=== PATIENT | female | born 1965 | race Caucasian/White ===

== ENCOUNTER 2018-02-25 17:01 | Emergency (ER) | payer OTHER, BC ==
[2018-02-25 17:16] VITALS: TEMP 98
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
[2018-02-25] MEDS ORDERED: CYCLOBENZAPRINE 10 MG TAB PO STA (19:04)
[2018-02-25] MEDS ORDERED: HYDROcodone/APAP 7.5-325MG 1 EACH TAB PO ONE (19:04)
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
[2018-02-25 20:00] VITALS: BP 183/86; PULSE 68; RESP 17
== END 2018-02-25 20:07 | disposition home or self-care (01) ==
LOC: EC 17:01
DX: S16.1XXA Strain of muscle, fascia and tendon at neck level, initial encounter (principal); I10 Essential (primary) hypertension; F17.200 Nicotine dependence, unspecified, uncomplicated; V43.52XA Car driver injured in collision with other type car in traffic accident, initial encounter; Y93.89 Activity, other specified; Y92.410 Unspecified street and highway as the place of occurrence of the external cause
CPT/HCPCS: 72125; 99284

== ENCOUNTER 2019-05-19 09:14 | Inpatient (IN) | payer BC, OTHER ==
--- NOTE | 2019-05-19 09:24 | ED ---
General Adult HPI - General Stated complaint: neuro symptoms Time Seen by Provider: 05/19/19 09:17 - History of Present Illness Initial comments: Dictation was produced using [employer] dictation software. please excuse any grammatical, word or spelling errors. Chief Complaint: 54-year-old female with past medical history of hypertension liver disease presents with right-sided weakness. History of Present Illness:-year-old female she presents today with right-sided weakness. She is brought in by EMS. Patient states she woke up at approximate 7:30 AM and felt significant motor weakness or right upper extremity or right lower extremity. Patient also complains of a strange sensation to her right side of her body. Denies any facial drooping or facial numbness. She was seen at [facility] where she was treated for hypertension. She was given lisinopril and another blood pressure medication. Total bili normal at approximately 10 PM. The ROS documented in this emergency department record has been reviewed and confirmed by me. Those systems with pertinent positive or negative responses have been documented in the HPI. All other systems are other negative and/or noncontributory. PHYSICAL EXAM: General Impression: Alert and oriented x3, not in acute distress HEENT: Normocephalic atraumatic, extra-ocular movements intact, pupils equal and reactive to light bilaterally, mucous membranes moist. Cardiovascular: Heart regular rate and rhythm, S1&S2 audible, no murmurs, rubs or gallops Chest: Lungs clear to auscultation bilaterally, no rhonchi, no wheeze, no rales Abdomen: Bowel sounds present, abdomen soft, non-tender, non-distended, no organomegaly Musculoskeletal: Pulses present and equal in all extremities, no peripheral edema Motor: no focal deficits noted Neurological: CN II-XII grossly intact, no focal motor or sensory deficits noted. Right upper extremity drift, right lower extremity weakness however there is definite to gravity. Non aphasic, follows commands. No dysarthria Skin: Intact with no visualized rashes Psych: Normal affect and mood ED course: Patient is a 54-year-old female presents with strokelike symptoms. She woke up with the symptoms. Last known normal was 10 PM last night. Culture was paged. Patient given an initial NIH of 2. Constructgiven that there was some concern for large vessel occlusion. Patient case was discussed with Dr. Grissom. CT and CT angiogram of the brain were found to be unremarkable. There is however some suspicious findings seen on the CT without contrast. Chest x-ray is unremarkable. Laboratory evaluation unremarka ble. Point of aspirin was administered. Patient be admitted for cerebrovascular accident. Discussed patient case with Dr. Pedraza who is willing to accept patient's care. Patient was not given TPA as per recommended by neuro endovascular stroke doctor. She was given aspirin. EKG interpretation: Ventricular rate 61, normal sinus rhythm, OH interval 154, care is 82, QTc 446. No OH prolongation, no QTC prolongation, no ST or T-wave changes noted. EKG compared to [default value] showing no changes. Overall, this EKG is unremarkable - Related Data Home Medications Medication Instructions Recorded Confirmed No Known Home Medications 02/25/18 05/19/19 Allergies Allergy/AdvReac Type Severity Reaction Status Date / Time No Known Allergies Allergy Verified 05/19/19 09:44 Review of Systems ROS Statement: Those systems with pertinent positive or pertinent negative responses have been documented in the HPI. ROS Other: All systems not noted in ROS Statement are negative. Past Medical History Past Medical History: GERD/Reflux, Hypertension, Liver Disease Additional Past Medical History / Comment(s): 06/07/15 Pt admitted to floor s/p lap mikey fundoplasty.OTHER hx: HX ELEVATED LIVER ENZYMES. NO CURRENT TX FOR GERD. small HIATAL HERNIA, Esophagitis. History of Any Multi-Drug Resistant Organisms: None Reported Past Surgical History: Section, Tubal Ligation Additional Past Surgical History / Comment(s): 06/07/15 Laparoscopic mikey fundoplasty. Other SX: D & C. EGD 03/16/15. Past Anesthesia/Blood Transfusion Reactions: No Reported Reaction Additional Past Anesthesia/Blood Transfusion Reaction / Comment(s): Pt has never recieved blood. Past Psychological History: No Psychological Hx Reported Smoking Status: Current every day smoker Past Alcohol Use History: Rare Past Drug Use History: None Reported - Past Family History Mother Family Medical History: No Reported History (Healthy except fracture of the left humerus) Additional Family Medical History / Comment(s): Mother is healthy and is 77 or 78yrs old. Father Family Medical History: No Reported History ( of pneumonia), Coronary Artery Disease (CAD) Additional Family Medical History / Comment(s): Father is . He had heart problems. Brother(s) Family Medical History: CVA/TIA, Neurologic Disorder (CVA at age 30) Sister(s) Family Medical History: No Reported History (3 sisters healthy) Son(s) Family Medical History: No Reported History (2 sons healthy) Course Vital Signs 05/19/19 05/19/19 09:19 09:32 Temperature 98.1 F Pulse Rate 62 Respiratory 18 Rate Blood Pressure 144/80 O2 Sat by Pulse 99 Oximetry Medical Decision Making - Lab Data Result diagrams: 05/19/19 09:22 05/19/19 09:22 Lab Results 05/19/19 05/19/19 05/19/19 Range/Units 09:22 09:22 09:22 WBC 10.2 (3.8-10.6) k/uL RBC 5.16 (3.80-5.40) m/uL Hgb 15.1 (11.4-16.0) gm/dL Hct 45.0 (34.0-46.0) % MCV 87.4 (80.0-100.0) fL MCH 29.3 (25.0-35.0) pg MCHC 33.5 (31.0-37.0) g/dL RDW 13.5 (11.5-15.5) % Plt Count 242 (150-450) k/uL Neutrophils % 70 % Lymphocytes % 22 % Monocytes % 3 % Eosinophils % 3 % Basophils % 1 % Neutrophils # 7.2 (1.3-7.7) k/uL Lymphocytes # 2.2 (1.0-4.8) k/uL Monocytes # 0.3 (0-1.0) k/uL Eosinophils # 0.3 (0-0.7) k/uL Basophils # 0.1 (0-0.2) k/uL PT 10.0 (9.0-12.0) sec INR 0.9 (<1.2) APTT 24.5 (22.0-30.0) sec Sodium 142 (137-145) mmol/L Potassium 3.9 (3.5-5.1) mmol/L Chloride 109 H (98-107) mmol/L Carbon Dioxide 26 (22-30) mmol/L Anion Gap 7 mmol/L BUN 10 (7-17) mg/dL Creatinine 0.58 (0.52-1.04) mg/dL Est GFR (CKD-EPI)AfAm >90 (>60 ml/min/1.73 sqM) Est GFR (CKD-EPI)NonAf >90 (>60 ml/min/1.73 sqM) Glucose 111 H (74-99) mg/dL Calcium 9.4 (8.4-10.2) mg/dL Total Bilirubin 0.6 (0.2-1.3) mg/dL AST 33 (14-36) U/L ALT 38 (9-52) U/L Alkaline Phosphatase 131 H (38-126) U/L Total Creatine Kinase (30-135) U/L CK-MB (CK-2) (0.0-2.4) ng/mL CK-MB (CK-2) Rel Index Troponin I (0.000-0.034) ng/mL Total Protein 7.6 (6.3-8.2) g/dL Albumin 4.5 (3.5-5.0) g/dL 05/19/19 Range/Units 09:22 WBC (3.8-10.6) k/uL RBC (3.80-5.40) m/uL Hgb (11.4-16.0) gm/dL Hct (34.0-46.0) % MCV (80.0-100.0) fL MCH (25.0-35.0) pg MCHC (31.0-37.0) g/dL RDW (11.5-15.5) % Plt Count (150-450) k/uL Neutrophils % % Lymphocytes % % Monocytes % % Eosinophils % % Basophils % % Neutrophils # (1.3-7.7) k/uL Lymphocytes # (1.0-4.8) k/uL Monocytes # (0-1.0) k/uL Eosinophils # (0-0.7) k/uL Basophils # (0-0.2) k/uL PT (9.0-12.0) sec INR (<1.2) APTT (22.0-30.0) sec Sodium (137-145) mmol/L Potassium (3.5-5.1) mmol/L Chloride (98-107) mmol/L Carbon Dioxide (22-30) mmol/L Anion Gap mmol/L BUN (7-17) mg/dL Creatinine (0.52-1.04) mg/dL Est GFR (CKD-EPI)AfAm (>60 ml/min/1.73 sqM) Est GFR (CKD-EPI)NonAf (>60 ml/min/1.73 sqM) Glucose (74-99) mg/dL Calcium (8.4-10.2) mg/dL Total Bilirubin (0.2-1.3) mg/dL AST (14-36) U/L ALT (9-52) U/L Alkaline Phosphatase (38-126) U/L Total Creatine Kinase 143 H (30-135) U/L CK-MB (CK-2) 1.0 (0.0-2.4) ng/mL CK-MB (CK-2) Rel Index 0.7 Troponin I <0.012 (0.000-0.034) ng/mL Total Protein (6.3-8.2) g/dL Albumin (3.5-5.0) g/dL Disposition Clinical Impression: Cerebrovascular accident Disposition: ADMITTED IP TO THIS HOSP Condition: Fair Referrals: Mynor Khanna MD [Primary Care Provider] - 1-2 days Decision Time: 11:10
--- NOTE | 2019-05-19 09:36 | CT ---
EXAMINATION TYPE: CT brain wo con for TPA DATE OF EXAM: 05/19/2019 HISTORY: Right side weakness and numbness CT DLP: unavailable mGycm. Automated Exposure Control for Dose Reduction was Utilized. TECHNIQUE: CT scan of the head is performed without contrast. COMPARISON: None. FINDINGS: There is no acute intracranial hemorrhage or midline shift identified. There is diffuse v entricular and sulcal prominence consistent with diffuse age-related cerebral atrophy. Costa-white mat ter differentiation is preserved. The globes are intact and the visualized sinuses are clear. IMPRESSION: No acute intracranial hemorrhage or midline shift. There is mild diffuse age-related ce rebral atrophy identified most prominent over the bilateral frontal lobes.
--- NOTE | 2019-05-19 09:42 | XR ---
EXAMINATION TYPE: XR chest 1V portable DATE OF EXAM: 05/19/2019 COMPARISON: Chest x-ray September 11, 2014 HISTORY: Weakness. TECHNIQUE: Single frontal view of the chest is obtained. FINDINGS: Overlying EKG leads are redemonstrated. There is some chronic parenchymal change without s uspicious narrowing focal air space opacity, pleural effusion, or pneumothorax seen. The cardiac jose houette size remains within normal limits. The osseous structures are intact. IMPRESSION: No acute process. No significant change from prior.
[2019-05-19 09:45] LABS: Basophils # (A) 0.1 k/uL (0-0.2); Basophils % (A) 1 %; Eosinophils # (A) 0.3 k/uL (0-0.7); Eosinophils % (A) 3 %; HGB 15.1 gm/dL (11.4-16.0); Lymphocytes # (A) 2.2 k/uL (1.0-4.8); Lymphocytes % (A) 22 %; MCH 29.3 pg (25.0-35.0); MCHC 33.5 g/dL (31.0-37.0); MCV 87.4 fL (80.0-100.0); Mean Platelet Volume 7.2; Monocytes # (A) 0.3 k/uL (0-1.0); Monocytes % (A) 3 %; Neutrophils # (A) 7.2 k/uL (1.3-7.7); Neutrophils % (A) 70 %; Platelet Count 242 k/uL (150-450); RBC 5.16 m/uL (3.80-5.40); RDW 13.5 % (11.5-15.5); WBC 10.2 k/uL (3.8-10.6)
[2019-05-19 09:54] LABS: ALT 38 U/L (9-52); AST 33 U/L (14-36); African American GFR (CKD) >90 (>60 ml/min/1.73 sqM); Albumin 4.5 g/dL (3.5-5.0); Alkaline Phosphatase 131 U/L (38-126); Anion Gap 7 mmol/L; Blood Urea Nitrogen 10 mg/dL (7-17); Calcium 9.4 mg/dL (8.4-10.2); Carbon Dioxide 26 mmol/L (22-30); Chloride 109 mmol/L (98-107); Glucose 111 mg/dL (74-99); Potassium 3.9 mmol/L (3.5-5.1); Sodium 142 mmol/L (137-145); Total Bilirubin 0.6 mg/dL (0.2-1.3); Total Protein 7.6 g/dL (6.3-8.2)
--- NOTE | 2019-05-19 10:05 | CT ---
EXAMINATION TYPE: CT angio head neck DATE OF EXAM: 05/19/2019 HISTORY: Right side weakness and numbness COMPARISON: NONE CT DLP: 349.2 mGycm. Automated Exposure Control for Dose Reduction was Utilized. TECHNIQUE: CTA scan of the neck is performed with IV Contrast, patient injected with 50 mL of Isovue 370, axial images are obtained, coronal and sagittal reformatted images are reviewed. Three-D recons tructed images are created on an independent workstation and reviewed. FINDINGS: Carotid/Vascular Structures: There is a normal variant bovine aortic arch. The common carotid arterie s are patent and unremarkable. The cervical portions of the internal carotid arteries are also patent without hemodynamically significant stenosis. There is calcific atheromatous plaquing on the right a nd noncalcific atheromatous plaquing of the left within the carotid bulbs, nonhemodynamically signifi cant, estimated at approximately 10% of the left and 40% on the right. The vertebral arteries are pat ent with dominance noted on the left. The basilar artery is intact and unremarkable as are the posterior cerebral arteries and their visual ized portions. There are patent posterior communicating arteries and an anterior communicating artery and therefore the [place] of [place] appears complete. No sizable focal aneurysmal outpouching nor hem odynamically significant stenosis is seen of the major intracranial vasculature. Branch vessels appea r overall symmetric in quantity without possibly in a particular vascular distribution. Other: Visualized portions of the brain are discussed on the unenhanced CT brain of the same date. No suspicious enhancing mass or arteriovenous malformation is seen. Thyroid gland is homogeneous and un remarkable. Geographic groundglass opacities are seen within the lung apices. Mild multilevel degener ative changes of spine are noted. Straightening of usual cervical lordosis may relate to patient posi tioning, muscular sprain, or muscular spasm. At C5-C6 there is a small posterior disc osteophyte comp nic noted. IMPRESSION: 1. No evidence of hemodynamically significant stenosis, dissection, vascular occlusion, or focal aneu rysmal outpouching of the major arterial vasculature of the head or neck. 2. Approximate 40% stenosis from calcific atheromatous plaquing within the right carotid bulb, again nonhemodynamically significant. 3. Patchy groundglass opacities of the lung apices most commonly related to fluid overload although p neumonitis is possible. 4. Mild multilevel degenerative disc disease of the cervical spine.
[2019-05-19 10:10] LABS: INR 0.9 (<1.2); Partial Thromboplastin Time 24.5 sec (22.0-30.0)
[2019-05-19] MEDS ORDERED: ASPIRIN 81 MG PO STA (10:11)
[2019-05-19 10:17] LABS: Creatine Kinase 143 U/L (30-135)
[2019-05-19 10:29] LABS: Troponin I <0.012 ng/mL (0.000-0.034)
[2019-05-19] MEDS ORDERED: LISINOPRIL 5 MG TAB PO SCH (12:45)
[2019-05-19 13:00] LABS: Appearance,Urine Clear (Clear); Bilirubin,Urine Negative (Negative); Blood,Urine Negative (Negative); Color,Urine Light Yellow; Glucose,Urine (UA) Negative (Negative); Ketones,Urine Negative (Negative); Leukocyte Esterase,Urine Moderate (Negative); Mucus,Urine Rare /hpf; Nitrite,Urine Negative (Negative); Protein,Urine Negative (Negative); RBC,Urine 1 /hpf (0-5); Specific Gravity,Urine 1.032 (1.001-1.035); Squamous Epithelial Cell,Urine 1 /hpf (0-4); Urobilinogen,Urine <2.0 mg/dL (<2.0)
--- NOTE | 2019-05-19 13:15 | P.CNNES ---
History of Present Illness Consult date: 05/19/19 Requesting physician: Artem Belle Reason for Consult: CVA Chief complaint: Right-sided weakness History of Present Illness: 54 RH female per patient only vascular RF is smoking since age 16 continues to smoke 1ppd but denies HTN, DM or HL LKN 10pm before bed woke up this morning at 730am with right FD, dysarthria and right HP. Presented to ER as code stroke but out of window for lytics and no LVO for endovascular intervention, so admitted to our facility for conservative management. Does not normally take any antiplatelets or anticoagulants. Neurologically, denies recent head/neck trauma, decreased level or loss of consciousness, changes in vision, diplopia, amaurosis, facial numbness, vertigo, tinnitus, dysphagia, aphasia, other focal numbness/weakness not mentioned above, tremors, bowel/bladder incontinence or ataxia. No h/o migraine or seizure. Review of Systems I have performed a 14-point organ ROS with patient; pertinents are as per HPI. Past Medical History Past Medical History: GERD/Reflux, Hypertension, Liver Disease Additional Past Medical History / Comment(s): 06/07/15 Pt admitted to floor s/p lap mikey fundoplasty.OTHER hx: HX ELEVATED LIVER ENZYMES. NO CURRENT TX FOR GERD. small HIATAL HERNIA, Esophagitis. History of Any Multi-Drug Resistant Organisms: None Reported Past Surgical History: Section, Tubal Ligation Additional Past Surgical History / Comment(s): 06/07/15 Laparoscopic mikey fundoplasty. Other SX: D & C. EGD 03/16/15. Past Anesthesia/Blood Transfusion Reactions: No Reported Reaction Additional Past Anesthesia/Blood Transfusion Reaction / Comment(s): Pt has never recieved blood. Past Psychological History: No Psychological Hx Reported Smoking Status: Current every day smoker Past Alcohol Use History: Rare Additional Past Alcohol Use History / Comment(s): Soker 1ppd for 30 years. No drug use. Rare alcohol use. Patient lives at home with her . Past Drug Use History: None Reported - Past Family History Mother Family Medical History: No Reported History (Healthy except fracture of the left humerus) Additional Family Medical History / Comment(s): Mother is healthy and is 77 or 78yrs old. Father Family Medical History: No Reported History ( of pneumonia), Coronary Artery Disease (CAD) Additional Family Medical History / Comment(s): Father is . He had heart problems. Brother(s) Family Medical History: CVA/TIA, Neurologic Disorder (CVA at age 30) Sister(s) Family Medical History: No Reported History (3 sisters healthy) Son(s) Family Medical History: No Reported History (2 sons healthy) Medications and Allergies Home Medications Medication Instructions Recorded Confirmed Type No Known Home Medications 02/25/18 05/19/19 History Allergies Allergy/AdvReac Type Severity Reaction Status Date / Time No Known Allergies Allergy Verified 05/19/19 09:44 Physical Examination - Vital Signs Vital Signs: Vital Signs Temp Pulse Resp BP Pulse Ox 05/19/19 09:32 144/80 05/19/19 09:19 98.1 F 62 18 99 Intake and Output 05/18/19 05/19/19 05/19/19 22:59 06:59 14:59 Other: Weight 62.596 kg Gen NAD Pleasant and cooperative HEENT NCAT Sclera without icterus O/P clear Neck Supple No carotid bruit Cor RRR no m/r/g Lungs CTAB Abd Soft NTND +BS Ext Warm to touch No edema Neuro MS A+Ox4 Normal fluency Able to follow all commands CN PERRL VFF no APD EOMI no nystagmus or FOZIA Decreased right NLF but symmetric overall symmetric [place]'s symmetric Hearing intact to normal voice bilaterally Speech not dysarthric Equal elevation of palate Tongue midline Sym shrug and SCM bilaterally Motor Normal bulk/tone RUE drift No RLE drift No tremors Strength 5-/5 right 5/5 left Sens Intact to LT x4 No neglect or extinction Coord No dysmetria on FTN bilaterally DTRs 2+/4 sym throughout Toes downgoing bilaterally No clonus at achilles Gait Deferred NIHSS [id number] Results - Laboratory Findings CBC and BMP: 05/19/19 09:22 05/19/19 09:22 Abnormal Lab Findings: Abnormal Labs 05/19/19 05/19/19 05/19/19 09:22 09:22 12:00 Chloride 109 H Glucose 111 H Alkaline Phosphatase 131 H Total Creatine Kinase 143 H Ur Leukocyte Esterase Moderate H Urine WBC 6 H Urine Mucus Rare H - Diagnostic Findings Additional findings: CT Head wo cont 05/19/19. No ICH. ?mild frontal atrophy. Nil acute. CTA Head/Neck 05/19/19. No LVO or stenosis. I have reviewed neuroimages myself. Assessment and Plan Assessment: Wake-up stroke out of window for lytics and no LVO for thrombectomy, suspect left hemispheric (or pontine) lacunar-type ischemic infarct given years of smoking Plan: -MRI Brain wo nickolas -TTE -Already had CTA Head/Neck. No need for carotid duplex -Permissive HTN <220/120 to ensure perfusion of penumbra. Antihypertensive discontinued temporarily -Fasting lipids in am goal LDL <70 -ASA 325mg po qd -PT/OT/SP per protocol -Smoking cessation counseling held -Stroke education given to patient/family -DVT prophylaxis: SCDs -d/w patient/family in detail. All questions answered Thank you for this consultation. Please call with ?. Time with Patient: Greater than 30 (Time spent in direct patient care, greater than 50% of which was spent in [id number] counseling and coordination of care: 70 minutes)
[2019-05-19] MEDS ORDERED: LISINOPRIL 2.5 MG TAB PO SCH (14:45)
--- NOTE | 2019-05-19 14:55 | P.HPIM ---
History of Present Illness H&P Date: 05/19/19 Chief Complaint: Weakness right side This is a 54-year-old female patient of Dr. Khanna with past medical history of GERD, esophagitis status post lap Giuliana fundoplication performed on 06/07/[address] Lowery, tobacco use and dependence. Patient presented to [facility] yesterday afternoon around 7 or 8 PM because of weakness and dizziness. Patient underwent a CAT scan apparently was normal and due to her blood pressure due to being 200/80 she was started on lisinopril and amlodipine. Patient states she did have a little bit of weakness on her right side at that time the patient was discharged home. She states she woke up around 7 this morning and she couldn't walk correctly. She states she was stumbling to the right side and had weakness on her right side. She did not have any symptoms in her face. She denied any headache, no chest pain, no palpitations, developed dysphagia. Patient came into [facility] emergency center for evaluation. Initial blood pressure was 144/80, pulse ox 99% on room air. CT angiogram of the head and neck showed no evidence of hemodynamically significant stenosis, dissection, vascular occlusion or focal aneurysmal outpouching of the major arterial structure of the head or neck. 40% stenosis in the right carotid bulb, patchy groundglass opacities in the lung apices related to fluid overload although pneumonitis is possible. Mild multilevel degenerative disc disease of cervical spine. CT of the brain showed no acute intracranial hemorrhage or midline shift. Mild diffuse age-related cerebral atrophy. Chest x-ray shows no acute process. No significant change from prior. Patient has been seen in the emergency center by Dr. Cooper for suspected left hemispheric or pontine lacunar type ischemic infarct. He has ordered a MRI of the brain, echocardiogram. Patient has been started on aspirin 325 mg daily and Lipitor. Patient is seen in the emergency center awaiting a bed. Review of Systems Constitutional: Reports weakness, Denies anorexia, Denies chills, Denies fatigue, Denies fever, Denies poor appetite, Denies weight loss Ears, nose, mouth and throat: Denies headache, Denies nasal congestion, Denies nasal discharge, Denies sore throat, Denies vertigo Cardiovascular: Denies chest pain, Denies decreased exercise tolerance, Denies dyspnea on exertion, Denies edema, Denies leg edema, Denies lightheadedness, Denies orthopnea, Denies palpitations, Denies shortness of breath, Denies syncope Respiratory: Denies cough, Denies cough with sputum, Denies dyspnea, Denies excessive sputum, Denies hemoptysis, Denies home oxygen, Denies wheezing Gastrointestinal: Denies abdominal pain, Denies diarrhea, Denies loss of appetite, Denies melena, Denies nausea, Denies vomiting Genitourinary: Denies dysuria, Denies urgency, Denies urinary frequency Musculoskeletal: Reports muscle weakness, Denies arm numbness/tingling, Denies leg numbness/tingling, Denies myalgias, Denies neck pain Integumentary: Denies pruritus, Denies rash, Denies wounds Neurological: Reports gait dysfunction, Reports motor disturbance, Reports weakness, Denies aphasia, Denies change in mentation, Denies change in speech, Denies confusion, Denies seizures, Denies vertigo Psychiatric: Denies anxiety, Denies depression Endocrine: Denies fatigue, Denies weight change Past Medical History Past Medical History: GERD/Reflux, Hypertension, Liver Disease Additional Past Medical History / Comment(s): 06/07/15 Pt admitted to floor s/p lap giuliana fundoplasty.OTHER hx: HX ELEVATED LIVER ENZYMES. NO CURRENT TX FOR GERD. small HIATAL HERNIA, Esophagitis. History of Any Multi-Drug Resistant Organisms: None Reported Past Surgical History: Section, Tubal Ligation Additional Past Surgical History / Comment(s): 06/07/15 Laparoscopic giuliana fundoplasty. Other SX: D & C. EGD 03/16/15. Past Anesthesia/Blood Transfusion Reactions: No Reported Reaction Additional Past Anesthesia/Blood Transfusion Reaction / Comment(s): Pt has never recieved blood. Past Psychological History: No Psychological Hx Reported Smoking Status: Current every day smoker Past Alcohol Use History: Rare Additional Past Alcohol Use History / Comment(s): Soker 1ppd for 30 years. No drug use. Rare alcohol use. Patient lives at home with her . Past Drug Use History: None Reported - Past Family History Mother Family Medical History: No Reported History (Healthy except fracture of the left humerus) Additional Family Medical History / Comment(s): Mother is healthy and is 77 or 78yrs old. Father Family Medical History: No Reported History ( of pneumonia), Coronary Artery Disease (CAD) Additional Family Medical History / Comment(s): Father is . He had heart problems. Brother(s) Family Medical History: CVA/TIA, Neurologic Disorder (CVA at age 30) Additional Family Medical History / Comment(s): A brother has history of CVA at age 30. Sister(s) Family Medical History: No Reported History (3 sisters healthy) Additional Family Medical History / Comment(s): Patient has 3 sisters with no major medical problems. Son(s) Family Medical History: No Reported History (2 sons healthy) Additional Family Medical History / Comment(s): Patient has 2 sons with no major medical problems. Medications and Allergies Home Medications Medication Instructions Recorded Confirmed Type No Known Home Medications 02/25/18 05/19/19 History Allergies Allergy/AdvReac Type Severity Reaction Status Date / Time No Known Allergies Allergy Verified 05/19/19 09:44 Physical Exam Vitals: Vital Signs Temp Pulse Resp BP Pulse Ox 05/19/19 09:32 144/80 05/19/19 09:19 98.1 F 62 18 99 Intake and Output 05/18/19 05/19/19 05/19/19 22:59 06:59 14:59 Other: Weight 62.596 kg Gen: This is a 54-year-old female. She is resting on the ear stretch and appears to be comfortable and in no acute distress. HEENT: Head is atraumatic, normocephalic. Pupils equal, round. Sclerae is anicteric. No nystagmus. NECK: Supple. No JVD. No lymphadenopathy. No thyromegaly. LUNGS: Clear to auscultation. No wheezes or rhonchi. No intercostal retractions. HEART: Regular rate and rhythm. No murmur. ABDOMEN: Soft. Bowel sounds are present. No masses. No tenderness. EXTREMITIES: No pedal edema. No calf tenderness. NEUROLOGICAL: Patient is awake, alert and oriented x3. Cranial nerves 2 through 12 are grossly intact. Right upper extremity drift. Results CBC & Chem 7: 05/19/19 09:22 05/19/19 09:22 Labs: Abnormal Lab Results - Last 24 Hours (Table) 05/19/19 05/19/19 Range/Units 09:22 09:22 Chloride 109 H (98-107) mmol/L Glucose 111 H (74-99) mg/dL Alkaline Phosphatase 131 H (38-126) U/L Total Creatine Kinase 143 H (30-135) U/L Thrombosis Risk Factor Assmnt - DVT/VTE Prophylaxis DVT/VTE Prophylaxis: Mechanical Prophylaxis ordered Assessment and Plan Plan: 1. Possible left hemispheric or pontine lacunar type ischemic infarct. Consult with Dr. Cooper. MRA of the brain ordered, echocardiogram ordered. Hold antihypertensive medications per Dr. Cooper. Patient is been started on aspirin 325 mg daily and Lipitor. 2. Tobacco use and dependence. Nicotine patch. 3. Hiatal hernia and GERD status post Tahir fundoplication, stable and GI prophylaxis. Pepcid. 4. Hypertension. Hold lisinopril for now. 5. DVT prophylaxis. SCDs and STEVENSON [place]. Patient will be admitted to the hospital for a minimum of 2 night stay. Discharge plan: home Impression and plan of care have been directed as dictated by the signing physician. Eri Mixon nurse practitioner acting as scribe for signing physi wilber.
[2019-05-19] MEDS: ATORVASTATIN 40 MG TAB PO SCH (21:23)
[2019-05-19] MEDS: FAMOTIDINE 20 MG/2 ML VIAL IV SCH (21:24)
[2019-05-20 08:01] LABS: Cholesterol 213 mg/dL (<200); HDL Cholesterol 31 mg/dL (40-60); LDL Cholesterol,Calculated 141 mg/dL (0-99); Triglycerides 203 mg/dL (<150)
[2019-05-20] MEDS: FAMOTIDINE 20 MG/2 ML VIAL IV SCH (08:30)
[2019-05-20] MEDS: ASPIRIN 325 MG TAB PO SCH (08:30)
[2019-05-20] MEDS ORDERED: DIAZEPAM 5 MG TAB PO ONE (09:30)
--- NOTE | 2019-05-20 10:29 | ECHOF ---
Referral Reason:LVF MEASUREMENTS -------- HEIGHT: 149.9 cm WEIGHT: 62.6 kg BP: 144/80 RVIDd: 2.4 cm (< 3.3) IVSd: 1.2 cm (0.6 - 1.1) LVIDd: 3.2 cm (3.9 - 5.3) LVPWd: 1.4 cm (0.6 - 1.1) IVSs: 1.8 cm LVIDs: 1.9 cm LVPWs: 1.6 cm LAESV Index (A-L): 29.12 ml/m Ao Diam: 2.7 cm (2.0 - 3.7) AV Cusp: 1.6 cm (1.5 - 2.6) LA Diam: 3.5 cm (2.7 - 3.8) MV EXCURSION: 13.536 mm (> 18.000) MV EF SLOPE: 63 mm/s (70 - 150) EPSS: 0.7 cm MV E Krystian: 0.72 m/s MV DecT: 223 ms MV A Krystian: 0.90 m/s MV E/A Ratio: 0.80 RAP: 5.00 mmHg RVSP: 16.97 mmHg FINDINGS -------- Sinus rhythm. This was a technically adequate study. The left ventricular size is normal. There is mild concentric left ventricular hypertrophy. Overa ll left ventricular systolic function is normal with, an EF between 55 - 60 %. The diastolic fillin g pattern is normal for the age of the patient 9.72. The right ventricle is normal in size. LA is midly dilated 29-33ml/m2. The right atrial size is normal. Interatrial and interventricular septum intact. Lipomatous hypertrophy of atrial septum. There is no evidence of aortic regurgitation. There is no evidence of aortic stenosis. No mitral regurgitation. Trace tricuspid regurgitation present. There is no evidence of pulmonary hypertension. The right ventricular systolic pressure, as measured by Doppler, is 16.97mmHg. The pulmonic valve is normal. The aortic root size is normal. Normal inferior vena cava with normal inspiratory collapse consistent with estimated right atrial pre ssure of 5 mmHg. There is no pericardial effusion. CONCLUSIONS -------- 1. Sinus rhythm. 2. This was a technically adequate study. 3. The left ventricular size is normal. 4. There is mild concentric left ventricular hypertrophy. 5. Overall left ventricular systolic function is normal with, an EF between 55 - 60 %. 6. The diastolic filling pattern is normal for the age of the patient 9.72 7. The right ventricle is normal in size. 8. LA is midly dilated 29-33ml/m2. 9. The right atrial size is normal. 10. Interatrial and interventricular septum intact. 11. Lipomatous hypertrophy of atrial septum. 12. There is no evidence of aortic regurgitation. 13. There is no evidence of aortic stenosis. 14. No mitral regurgitation. 15. Trace tricuspid regurgitation present. 16. There is no evidence of pulmonary hypertension. 17. The right ventricular systolic pressure, as measured by Doppler, is 16.97mmHg. 18. The pulmonic valve is normal. 19. The aortic root size is normal. 20. Normal inferior vena cava with normal inspiratory collapse consistent with estimated right atrial pressure of 5 mmHg. 21. There is no pericardial effusion. KNIFEMAN: Ashia Gatica RDCS
--- NOTE | 2019-05-20 11:07 | P.PN ---
Subjective Progress Note Date: 05/20/19 Principal diagnosis: CVA MRI Brain. TTE. No acute events O/N. No new neuro c/o. Objective - Vital Signs Vital signs: Vital Signs Temp 98.0 F 05/20/19 07:50 Pulse 59 L 05/20/19 07:50 Resp 18 05/20/19 07:50 BP 135/64 05/20/19 07:50 Pulse Ox 96 05/20/19 07:50 Intake & Output 05/19/19 05/20/19 05/20/19 18:59 06:59 18:59 Intake Total 240 Balance 240 Weight 62.596 kg 62.3 kg Intake: Oral 240 Other: Voiding Method Toilet Toilet # Voids 1 - Exam Gen NAD Pleasant and cooperative MS A+Ox4 Normal fluency Able to follow all commands CN PERRL VFF no APD EOMI no nystagmus or FOZIA Decreased right NLF but symmetric overall symmetric Masseter's symmetric Hearing intact to normal voice bilaterally Speech not dysarthric Equal elevation of palate Tongue midline Sym shrug and SCM bilaterally Motor Normal bulk/tone RUE drift No RLE drift No tremors Strength 5-/5 right 5/5 left Sens Intact to LT x4 No neglect or extinction Coord No dysmetria on FTN bilaterally DTRs 2+/4 sym throughout Toes downgoing bilaterally No clonus at achilles Gait Deferred NIHSS [id number] - Labs CBC & Chem 7: 05/19/19 09:22 05/19/19 09:22 Labs: Abnormal Lab Results - Last 24 Hours (Table) 05/19/19 05/20/19 Range/Units 12:00 05:49 Triglycerides 203 H (<150) mg/dL Cholesterol 213 H (<200) mg/dL LDL Cholesterol, Calc 141 H (0-99) mg/dL HDL Cholesterol 31 L (40-60) mg/dL Ur Leukocyte Esterase Moderate H (Negative) Urine WBC 6 H (0-5) /hpf Urine Mucus Rare H (None) /hpf - Imaging and Cardiology MRI - head: image reviewed (+DWI in left PVWM) TTE 05/20/19. LV size normal. Mild concentric LVH. EF 55-60%. Mild LAE. Interatrial and interventricular septum intact. Assessment and Plan Assessment: Wake-up stroke not intervention candidate found to have left hemispheric acute ischemic infarct, favor small vessel disease based on location and morphology, likely due to years of tobacco use and LDL 141 Plan: -MRI Brain wo nickolas and TTE results reviewed with patient -CTA Head/Neck without LVO or stenosis -May gradually lower BP but avoid hypotension -LDL 141 goal <70 on statin therapy -ASA 325mg po qd -PT/OT/SP per protocol -Smoking cessation -DVT prophylaxis -d/w patient/family in detail. All questions answered -Neurology will be available again on 05/23/19. Thank you again for this consultation. Please call with ?. Time with Patient: Greater than 30 (Time spent in direct patient care, greater than 50% of which was spent in [id number] counseling and coordination of care: 35 minutes)
--- NOTE | 2019-05-20 11:21 | MR ---
Brain MRI without contrast HISTORY: Cerebral vascular accident Multiplanar multisequence imaging through the brain Correlation to CT brain 05/19/2019 There is motion on the exam. There is restricted diffusion, corresponding hyperintensity and inversion recovery T2-weighted sequen claire within the periventricular white matter on the left, the size of the signal abnormalities approxi mately 16 x 10 mm x 15 mm. Scattered hyperintensities are present within the deep white matter on inv ersion recovery T2-weighted sequences, there are approximately additional 3-5 lesions present. There are normal vascular flow voids. Some inflammatory change present in the mastoid air cells on the left, mucosal disease present within the maxillary sinuses. Orbits show symmetric appearance. Cerebellopontine angles, corpus callosum, p ituitary, cervical medullary junction are normal. IMPRESSION: Findings compatible with patient's history of cerebrovascular accident.
--- NOTE | 2019-05-20 14:40 | P.PN ---
Subjective Progress Note Date: 05/20/19 This is a 54-year-old female patient of Dr. Khanna with past medical history of GERD, esophagitis status post lap Giuliana fundoplication performed on 06/07/[address] Lowery, tobacco use and dependence. Patient presented to [facility] yesterday afternoon around 7 or 8 PM because of weakness and dizziness. Patient underwent a CAT scan apparently was normal and due to her blood pressure due to being 200/80 she was started on lisinopril and amlodipine. Patient states she did have a little bit of weakness on her right side at that time the patient was discharged home. She states she woke up around 7 this morning and she couldn't walk correctly. She states she was stumbling to the r ight side and had weakness on her right side. She did not have any symptoms in her face. She denied any headache, no chest pain, no palpitations, developed dysphagia. Patient came into [facility] emergency center for evaluation. Initial blood pressure was 144/80, pulse ox 99% on room air. CT angiogram of the head and neck showed no evidence of hemodynamically significant stenosis, dissection, vascular occlusion or focal aneurysmal outpouching of the major arterial structure of the head or neck. 40% stenosis in the right carotid bulb, patchy groundglass opacities in the lung apices related to fluid overload although pneumonitis is possible. Mild multilevel degenerative disc disease of cervical spine. CT of the brain showed no acute intracranial hemorrhage or midline shift. Mild diffuse age-related cerebral atrophy. Chest x-ray shows no acute process. No significant change from prior. Patient has been seen in the emergency center by Dr. Cooper for suspected left hemispheric or pontine lacunar type ischemic infarct. He has ordered a MRI of the brain, echocardiogram. Patient has been started on aspirin 325 mg daily and Lipitor. Patient is seen in the emergency center awaiting a bed. 05/20: Patient has been seen by Dr. Cooper with recommendations for a full strength aspirin, Lipitor, smoking cessation. MRI of the brain reveals findings compatible with history of CVA. Echocardiogram reveals EF of 55-60% with mild concentric left ventricular hypertrophy, trace tricuspid regurgitation, no pulmonary hypertension. Patient has been evaluated by physical t herapy/occupational therapy with recommendations for inpatient rehab. Patient is having difficulty with balance and falling to the right side. Consult with Dr. Crowe will be requested anticipate discharge to [facility] on Thursday if patient is accepted. Objective - Vital Signs Vital signs: Vital Signs Temp 98.0 F 05/20/19 07:50 Pulse 59 L 05/20/19 07:50 Resp 18 05/20/19 07:50 BP 135/64 05/20/19 07:50 Pulse Ox 96 05/20/19 07:50 Intake & Output 05/19/19 05/20/19 05/20/19 18:59 06:59 18:59 Intake Total 240 Balance 240 Weight 62.596 kg 62.3 kg Intake: Oral 240 Other: Voiding Method Toilet Toilet # Voids 1 - Exam Review of Systems Constitutional: Reports weakness, Denies anorexia, Denies chills, Denies fatigue, Denies fever, Denies poor appetite, Denies weight loss Ears, nose, mouth and throat: Denies headache, Denies nasal congestion, Denies nasal discharge, Denies sore throat, Denies vertigo Cardiovascular: Denies chest pain, Denies decreased exercise tolerance, Denies dyspnea on exertion, Denies edema, Denies leg edema, Denies lightheadedness, Denies orthopnea, Denies palpitations, Denies shortness of breath, Denies syncope Respiratory: Denies cough, Denies cough with sputum, Denies dyspnea, Denies excessive sputum, Denies hemoptysis, Denies home oxygen, Denies wheezing Gastrointestinal: Denies abdominal pain, Denies diarrhea, Denies loss of appetite, Denies melena, Denies nausea, Denies vomiting Genitourinary: Denies dysuria, Denies urgency, Denies urinary frequency Musculoskeletal: Reports muscle weakness, Denies arm numbness/tingling, Denies leg numbness/tingling, Denies myalgias Integumentary: Denies pruritus, Denies rash, Denies wounds Neurological: Reports gait dysfunction, Reports motor disturbance, Reports weakness, Denies aphasia, Denies change in mentation, Denies change in speech, Denies confusion, Denies seizures, Denies vertigo Psychiatric: Denies anxiety, Denies depression Endocrine: Denies fatigue, Denies weight change Gen: This is a 54-year-old female. She is resting in bed and appears to be comfortable and in no acute distress. Multiple family members at bedside. HEENT: Head is atraumatic, normocephalic. Pupils equal, round. Sclerae is anicteric. No nystagmus. NECK: Supple. No JVD. No lymphadenopathy. No thyromegaly. LUNGS: Clear to auscultation. No wheezes or rhonchi. No intercostal retractions. HEART: Regular rate and rhythm. No murmur. ABDOMEN: Soft. Bowel sounds are present. No masses. No tenderness. EXTREMITIES: No pedal edema. No calf tenderness. NEUROLOGICAL: Patient is awake, alert and oriented x3. Cranial nerves 2 through 12 are grossly intact. Right upper extremity drift. - Labs CBC & Chem 7: 05/19/19 09:22 05/19/19 09:22 Labs: Abnormal Lab Results - Last 24 Hours (Table) 05/19/19 05/20/19 Range/Units 12:00 05:49 Triglycerides 203 H (<150) mg/dL Cholesterol 213 H (<200) mg/dL LDL Cholesterol, Calc 141 H (0-99) mg/dL HDL Cholesterol 31 L (40-60) mg/dL Ur Leukocyte Esterase Moderate H (Negative) Urine WBC 6 H (0-5) /hpf Urine Mucus Rare H (None) /hpf Assessment and Plan Plan: 1. Possible left hemispheric or pontine lacunar type ischemic infarct. Consult with Dr. Cooper. MRA of the brain and echocardiogram as above. Hold antihypertensive medications per Dr. Cooper. Patient is been started on aspirin 325 mg daily and Lipitor. PT/OT, ST. 2. Tobacco use and dependence. Nicotine patch. 3. Hiatal hernia and GERD status post Tahir fundoplication, stable and GI prophylaxis. Pepcid. 4. Hypertension. Hold lisinopril. Patient is now normotensive without medication. 5. DVT prophylaxis. SCDs and STEVENSON hose. Discharge plan: [facility] for inpatient rehab. Consult with Dr. Crowe. Impression and plan of care have been directed as dictated by the signing physician. Eri Mixon nurse practitioner acting as scribe for signing physician.
[2019-05-20] MEDS: ATORVASTATIN 40 MG TAB PO SCH (20:01)
[2019-05-20] MEDS: FAMOTIDINE 20 MG TAB PO SCH (20:01)
[2019-05-21] MEDS: ASPIRIN 325 MG TAB PO SCH (07:52)
[2019-05-21] MEDS: FAMOTIDINE 20 MG TAB PO SCH (07:56)
--- NOTE | 2019-05-21 09:07 | P.CONS ---
History of Present Illness - Chief Complaint Gait disturbance - History of Present Illness I had the opportunity see patient for inpatient rehab consultation with regard to gait disturbance. She was admitted to [facility] May 19 acute onset right- sided weakness. Chest x-ray negative. Angiogram CT with 40% occlusion right carotid bulb as well as groundglass appearance lungs. Head CT with age-related change only. Brain MRI with left periventricular change consistent with history of stroke. Started therapies. PT reports two-person minimal assistance functional mobility. OT reports minimal assistance for upper dressing, bathing, toileting and functional mobility and moderate assistance for lower dressing. Speech therapy reports within functional limits for swallow and conversation. Previous functional history as elicited from patient and corroborated by : 54-year-old right-handed white female who is and lives in one floor home with . Works full-time. Indeed independent with cooking, laundry, driving, standing shower and gait without device. Smokes a pack per da y and a rare drink. Dr. Rose is regular doctor. Family history of father with smoker. Review of Systems Review of systems: ENT: Denies sneezes or discharge. Eyes: Denies discharge or photophobia. Cardiac: Denies chest pain or palpitation. Pulmonary: Denies cough or shortness of breath. Breast: Denies discharge or lumps. Gastrointestinal: Denies nausea, emesis, constipation, diarrhea. Genitourinary: Denies discharge or frequency. Musculoskeletal: Denies muscle or bone aches. Neurologic: Right-sided weakness and numbness, especially hand. Endocrine: Denies shakes or sweats. Oncology: Denies cancers. Dermatologic: Denies rash, itching, pruritus. ALLERGY/immunology: Denies sneezes, rashes. Past Medical History Past Medical History: GERD/Reflux, Liver Disease Additional Past Medical History / Comment(s): Elevated liver enzymes, high triglycerides, past hiatal hernia/esophagitis-had lap mikey fundoplasty. History of Any Multi-Drug Resistant Organisms: None Reported Past Surgical History: Section, Tubal Ligation Additional Past Surgical History / Comment(s): 06/07/15 Laparoscopic mikey fundoplasty, D & C, EGD 03/16/15. Past Anesthesia/Blood Transfusion Reactions: No Reported Reaction Additional Past Anesthesia/Blood Transfusion Reaction / Comm: Pt has never recieved blood. Smoking Status: Current every day smoker - Past Family History Mother Family Medical History: No Reported History Additional Family Medical History / Comment(s): Mother is healthy and is 81yrs old. Father Family Medical History: No Reported History, Coronary Artery Disease (CAD), Pneumonia Additional Family Medical History / Comment(s): Father is . He had heart problems. Brother(s) Family Medical History: CVA/TIA, Neurologic Disorder Additional Family Medical History / Comment(s): A brother has history of CVA at age 30. Sister(s) Family Medical History: No Reported History Additional Family Medical History / Comment(s): Patient has 3 sisters with no major medical problems. Son(s) Family Medical History: No Reported History Additional Family Medical History / Comment(s): Patient has 2 sons with no major medical problems. Medications and Allergies Home Medications Medication Instructions Recorded Confirmed Type Aspirin 325 mg PO DAILY tab 05/20/19 Rx Atorvastatin [Lipitor] 40 mg PO HS #30 tab 05/20/19 Rx Famotidine [Pepcid] 20 mg PO DAILY #30 tablet 05/20/19 Rx Allergies Allergy/AdvReac Type Severity Reaction Status Date / Time No Known Allergies Allergy Verified 05/19/19 09:44 Physical Exam Vitals: Vital Signs Temp Pulse Resp BP Pulse Ox 05/21/19 08:00 97.8 F 55 L 17 128/79 97 05/21/19 04:16 98.1 F 60 16 129/77 98 05/20/19 23:27 97.3 F L 55 L 16 150/78 98 05/20/19 19:57 98.3 F 64 15 167/81 98 05/20/19 15:35 97.4 F L 58 L 18 149/83 96 05/20/19 11:40 97.7 F 53 L 18 151/83 96 Intake and Output 05/20/19 05/21/19 05/21/19 22:59 06:59 14:59 Intake Total 600 240 Output Total 500 Balance 100 240 Intake: Oral 600 240 Output: Urine 500 Other: Voiding Method Toilet Toilet # Voids 1 Weight 62 kg Skin: Good color, texture, turgor. General: Medium build and comfortable appearance. Head: Normocephalic, atraumatic. Eyes: Symmetric. Pupils equal round. Ears: Symmetric. Hearing within normal limits. Mouth: Clear. Neck: Supple. Carotid without bruit. Cardiac: Regular rate and rhythm. Lungs: Clear anteriorly and posteriorly. Abdomen: Soft active nontender. Extremities: Normal tone. Neurological: Mental status: Alert, cooperative, pleasant. Cranial nerves: Symmetric facial tone and trapezius. Motor: Normal strength and isolation all 4 limbs except right hand which demonstrates synergy. Sensation: Intact throughout. Slightly depressed right arm and hand. DTRs: Symmetric and equal throughout. Mobility: Sits and stands without assistance or verbal cueing or loss of balance. Patient also demonstrated ability get on and off the toilet, on and off a chair, in and out of hospital door well, all without assistance or cueing. Results CBC & Chem 7: 05/19/19 09:22 05/19/19 09:22 Assessment and Plan (1) Cerebrovascular accident Current Visit: Yes Status: Acute Code(s): I63.9 - CEREBRAL INFARCTION, UNSPECIFIED SNOMED Code(s): 209313847 Plan: Impression: 1. Gait disturbance. 2. Left-sided stroke result in right hemiparesthesias. 3. Dysarthria, resolving/resolved. 4. Liver disease. 5. GERD. Comments and plan: PT, OT, CERTIFIED MASSAGE THERAPIST ongoing and safety concerns noted. Patient however hopes to return home and with goal of outpatient therapy. In this regard, I may patient prove that she would be safe and independent for functiona l mobility around the house, which she did. Discussed with patient that she is not legal to drive for 6 months, would require neurologist okay. Also should supervise the cooking. Recommend quad cane in left hand. At this time would recommend home therapy as a slightly better option to outpatient therapy, at this time.
[2019-05-21 16:22] VITALS: BP 143/82; PULSE 61; RESP 17; TEMP 97.6
--- NOTE | 2019-05-21 22:40 | P.DS ---
Providers Date of admission: 05/19/19 11:06 Expected date of discharge: 05/21/19 Attending physician: Nadeem Curtis Consults: 05/19/19 11:08 Consult Physician Stat Consulting Provider: Raymon Cooper Consult Reason/Comments: cva Do you want consulting provider notified?: Yes 05/20/19 13:00 Consult Physician Routine Consulting Provider: Krzysztof Crowe Consult Reason/Comments: IP rehab Do you want consulting provider notified?: Yes Primary care physician: [facility] Course: his is a 54-year-old female patient of Dr. Khanna with past medical history of GERD, esophagitis status post lap Giuliana fundoplication performed on 06/07/[address] Lowery, tobacco use and dependence. Patient presented to [facility] yesterday afternoon around 7 or 8 PM because of weakness and dizziness. Patient underwent a CAT scan apparently was normal and due to her blood pressure due to being 200/80 she was started on lisinopril and amlodipine. Patient states she did have a little bit of weakness on her right side at that time the patient was discharged home. She states she woke up around 7 this morning and she couldn't walk correctly. She states she was stumbling to the right side and had weakness on her right side. She did not have any symptoms in her face. She denied any headache, no chest pain, no palpitations, developed dysphagia. Patient came into [facility] emergency center for evaluation. Initial blood pressure was 144/80, pulse ox 99% on room air. CT angiogram of the head and neck showed no evidence of hemodynamically significant stenosis, dissection, vascular occlusion or focal aneurysmal outpouching of the major arterial structure of the head or neck. 40% stenosis in the right carotid bulb, patchy groundglass opacities in the lung apices related to fluid overload although pneumonitis is possible. Mild multilevel degenerative disc disease of cervical spine. CT of the brain showed no acute intracranial hemorrhage or midline shift. Mild diffuse age-related cerebral atrophy. Chest x-ray shows no acute process. No significant change from prior. Patient has been seen in the emergency center by Dr. Cooper for suspected left hemispheric or pontine lacunar type ischemic infarct. He has ordered a MRI of the brain, echocardiogram. Patient has been started on aspirin 325 mg daily and Lipitor. Patient is seen in the emergency center awaiting a bed. 05/20: Patient has been seen by Dr. Cooper with recommendations for a full strength aspirin, Lipitor, smoking cessation. MRI of the brain reveals findings com patible with history of CVA. Echocardiogram reveals EF of 55-60% with mild concentric left ventricular hypertrophy, trace tricuspid regurgitation, no pulmonary hypertension. Patient has been evaluated by physical therapy/occupational therapy with recommendations for inpatient rehab. Patient is having difficulty with balance and falling to the right side. Consult with Dr. Crowe will be requested anticipate discharge to [facility] on Thursday if patient is accepted. 05/21, patient continues to improve, Dr. Crowe has recommended home therapies, patient denies any shortness of breath, no chest pain, patient is willing to quit smoking permanently, and is dedicated to use, patient declined nicotine patches to continue at home, outpatient follow-up with Dr. Raymond neurology, and PCP, patient does not require any TON inhibitor she denies the blood pressure is normotensive, patient is discharged with statin and aspirin Final diagnosis 1. Possible left hemispheric or pontine lacunar type ischemic infarct with right dominant hemiparesis. Consult with Dr. Cooper. MRA of the brain and echocardiogram as above. Hold antihypertensive medications per Dr. Cooper. Patient is been started on aspirin 325 mg daily and Lipitor. PT/OT, ST., home therapies, as recommended by Dr. Bridges 2. Tobacco use and dependence. Nicotine patch refused on maintenance post discharge. 3. Hiatal hernia and GERD status post Tahir fundoplication, stable and GI prophylaxis. Pepcid. 4. Hypertension. Hold lisinopril. Patient is now normotensive without medication. 5. DVT prophylaxis. SCDs and STEVENSON hose. Patient Condition at Discharge: Fair Plan - Discharge Summary Discharge Rx Participant: No New Discharge Prescriptions: New Aspirin 325 mg PO DAILY tab Atorvastatin [Lipitor] 40 mg PO HS #30 tab Sennosides/Docusate Sodium [Deborah Colace] 1 tab PO DAILY PRN #30 tab PRN Reason: Diarrhea Discharge Medication List Aspirin 325 mg PO DAILY tab 05/20/19 [Rx] Atorvastatin [Lipitor] 40 mg PO HS #30 tab 05/20/19 [Rx] Sennosides/Docusate Sodium [Deborah Colace] 1 tab PO DAILY PRN #30 tab 05/21/19 [Rx] Follow up Appointment(s)/Referral(s): [facility], [NON-STAFF] - Mynor Khanna MD [Primary Care Provider] - 1 Week Elba Raymond MD [STAFF PHYSICIAN] - 1 Week Patient Instructions/Handouts: Ischemic Stroke (DC) Discharge Disposition: HOME WITH HOME HEALTH SERVICES
== END 2019-05-21 17:40 | disposition home health service (06) | DRG 65 ==
LOC: EC 09:14 → 3SCARD 11:06
PROVIDERS: ADMIT Internal Medicine; ATTEND Internal Medicine
DX: I63.9 Cerebral infarction, unspecified (principal); G81.91 Hemiplegia, unspecified affecting right dominant side; I10 Essential (primary) hypertension; R29.702 NIHSS score 2; K21.9 Gastro-esophageal reflux disease without esophagitis; K44.9 Diaphragmatic hernia without obstruction or gangrene; E78.1 Pure hyperglyceridemia; F17.210 Nicotine dependence, cigarettes, uncomplicated; I11.9 Hypertensive heart disease without heart failure; K76.9 Liver disease, unspecified; M50.30 Other cervical disc degeneration, unspecified cervical region; R40.2362 Coma scale, best motor response, obeys commands, at arrival to emergency department; R40.2142 Coma scale, eyes open, spontaneous, at arrival to emergency department; R40.2252 Coma scale, best verbal response, oriented, at arrival to emergency department; Z71.6 Tobacco abuse counseling; Z79.82 Long term (current) use of aspirin; Z79.899 Other long term (current) drug therapy; Z98.890 Other specified postprocedural states; Z98.51 Tubal ligation status; Z86.73 Personal history of transient ischemic attack (TIA), and cerebral infarction without residual deficits
CPT/HCPCS: 36415; 70450; 70496; 70498; 70551; 71045; 80053; 80061; 81001; 82550; 82553; 84484; 85025; 85610; 85730; 93005; 93306; 94760; 99285